=== PATIENT | male | born 1990 | race Hispanic/Latino ===

== ENCOUNTER 2017-08-28 11:39 | Emergency (ER) | payer BC, OTHER ==
[2017-08-28] MEDS ORDERED: ACETAMINOPHEN EXTRA STRENGTH 500 MG TABLET ONE (11:52)
[2017-08-28] MEDS ORDERED: LACTATED RINGERS 1000ML 2,000 ML IV ONE (12:16)
[2017-08-28 12:29] LABS: RAPID GROUP A STREP NEGATIVE (NEGATIVE)
[2017-08-28] MEDS ORDERED: MAG HYDROX/AL HYDROX/SIMETH ES 30 ML SUSP UDCUP ONE (12:32)
[2017-08-28] MEDS ORDERED: LIDOCAINE HCL 2% VISCOUS 15 ML UDCUP ONE (12:32)
[2017-08-28] MEDS ORDERED: METOCLOPRAMIDE 10 MG/2 ML VIAL ONE (12:32)
[2017-08-28] MEDS ORDERED: KETOROLAC TROMETHAMINE 30MG/ML ONE (12:33)
[2017-08-28] MEDS ORDERED: DEXAMETHASONE 4 MG TAB ONE (12:33)
[2017-08-28 12:35] LABS: HEMATOCRIT 40.6 % (42-54); MEAN CORPUSCULAR HEMOGLOBIN 27.5 pg (27.0-33.0); MEAN CORPUSCULAR HGB CONC 34.8 g/dL (32.0-36.0); MEAN CORPUSCULAR VOLUME 79.1 fL (79-99); PLATELET COUNT (AUTO) 217 K/uL (130-400); RED BLOOD CELL COUNT(AUTO) 5.13 MIL/uL (4.50-6.20); RED CELL DISTRIBUTION WIDTH 13.9 % (11.0-15.5)
[2017-08-28 12:36] LABS: BASOPHILS % (AUTO) 0.4 % (0.0-5.0); EOSINOPHILS % (AUTO) 0.1 % (0.0-8.0); LYMPHOCYTES % (AUTO) 10.1 % (21.0-51.0); MONOCYTES % (AUTO) 10.4 % (3.0-13.0)
[2017-08-28 12:46] LABS: CREATININE 0.9 mg/dL (0.5-1.5)
[2017-08-28 12:58] LABS: CRP QUANTITATIVE 141.9 mg/L (0.00-9.0)
[2017-08-28] MEDS ORDERED: CEFTRIAXONE SODIUM 1 GM ONE (13:28)
[2017-08-28] MEDS ORDERED: MORPHINE SULFATE 4 MG/1ML SYG ONE (15:03)
[2017-08-28 15:53] LABS: APPEARANCE,CSF CLEAR (CLEAR); CSF TOTAL VOLUME 5.5 mL; CSF TUBE NUMBER 2
[2017-08-28 15:54] LABS: APPEARANCE2,CSF CLEAR (CLEAR); COLOR,CSF COLORLESS (COLORLESS); COLOR2,CSF COLORLESS (COLORLESS); CSF 2ND TUBE NUMBER 3
[2017-08-28 16:03] LABS: GLUCOSE, CSF 64 mg/dL (40-70); TOTAL PROTEIN, CSF 34 mg/dL (15-45)
[2017-08-28 16:13] LABS: RED BLOOD CELL1,CSF 0 CMM (0-0); WHITE BLOOD CELL1,CSF 3 CMM (0-5)
[2017-08-28 16:14] LABS: WHITE BLOOD CELL2,CSF 1.6 CMM (0-5)
== END 2017-08-28 16:43 | disposition home or self-care (01) ==
LOC: EDH 11:39
DX: J02.9 Acute pharyngitis, unspecified (principal); R51 Headache
CPT/HCPCS: 36415; 62270; 80048; 82945; 83605; 84157; 85025; 86140; 87040; 87804 ×2; 87880; 89051 ×2; 96374; 96375; 99291; J0696; J1885; J2270; J2765; J7120; J8540

== ENCOUNTER 2017-12-31 23:01 | Emergency (ER) | payer BC ==
[2017-12-31] MEDS ORDERED: FAMOTIDINE 20MG TAB 20 MG TAB ONE (23:52)
[2017-12-31] MEDS ORDERED: DEXAMETHASONE SOD PHOSPHATE 10MG/ML 1ML VIAL ONE (23:52)
[2017-12-31] MEDS ORDERED: DiphenhydrAMINE HCL 50 MG/ML VIAL ONE (23:52)
== END 2018-01-01 00:45 | disposition home or self-care (01) ==
LOC: EDH 23:01
DX: T78.49XA Other allergy, initial encounter (principal); Z90.49 Acquired absence of other specified parts of digestive tract; X58.XXXA Exposure to other specified factors, initial encounter
CPT/HCPCS: 96372 ×2; 99284; J1100; J1200

== ENCOUNTER 2019-04-26 09:51 | Emergency (ER) | payer BC ==
[2019-04-26] MEDS ORDERED: ACETAMINOPHEN EXTRA STRENGTH 500 MG TABLET ONE (10:01)
[2019-04-26] MEDS ORDERED: ONDANSETRON ODT 4 MG TAB ONE (10:02)
== END 2019-04-26 10:33 | disposition home or self-care (01) ==
LOC: EDH 09:51
DX: J11.1 Influenza due to unidentified influenza virus with other respiratory manifestations (principal); Z90.49 Acquired absence of other specified parts of digestive tract

== ENCOUNTER 2020-09-14 22:48 | Emergency (ER) | payer BC ==
[~2020-09-14] VITALS: Ht 162.6 cm; Wt 5.4 kg
[2020-09-14 22:53] VITALS: BP 146/76
[2020-09-14 23:41] LABS: BASOPHILS % (AUTO) 0.5 % (0.0-5.0); EOSINOPHILS % (AUTO) 2.6 % (0.0-8.0); HEMATOCRIT 41.8 % (42-54); LYMPHOCYTES % (AUTO) 12.7 % (21.0-51.0); MEAN CORPUSCULAR HEMOGLOBIN 27.3 pg (27.0-33.0); MEAN CORPUSCULAR HGB CONC 34.2 g/dL (32.0-36.0); MEAN CORPUSCULAR VOLUME 79.9 fL (79-99); NEUTROPHILS % (AUTO) 72.2 % (40.0-77.0); PLATELET COUNT (AUTO) 267 K/uL (130-400); RED BLOOD CELL COUNT(AUTO) 5.23 MIL/uL (4.50-6.20); RED CELL DISTRIBUTION WIDTH 13.6 % (11.0-15.5)
[2020-09-14 23:44] LABS: CREATININE 0.8 mg/dL (0.5-1.5)
[2020-09-14 23:48] LABS: ALBUMIN 3.9 g/dL (3.5-5.0); BILIRUBIN,TOTAL 0.3 mg/dL (0.2-1.0); TOTAL PROTEIN, SERUM 7.9 g/dL (6.0-8.3)
[2020-09-15] MEDS ORDERED: AZIT500T PO (00:07)
[2020-09-15] MEDS ORDERED: METH4TAB3 PO (00:07)
[2020-09-15] MEDS ORDERED: PREDNISONE 20 MG TABLET ONE (00:09)
[2020-09-15] MEDS ORDERED: AZITHROMYCIN 250 MG TABLET PO ONE ×2 (00:10→00:15)
[2020-09-15] MEDS ORDERED: PREDNISONE 20 MG TABLET PO ONE (00:15)
[2020-09-15 00:17] VITALS: BP 140/82
== END 2020-09-15 00:21 | disposition home or self-care (01) ==
LOC: EDH 22:48
DX: J40 Bronchitis, not specified as acute or chronic (principal); Z86.16 Personal history of COVID-19
CPT/HCPCS: 36415; 71045; 80053; 85025

== ENCOUNTER 2022-12-17 20:41 | Emergency (ER) | payer BC, MEDICAID ==
[~2022-12-17] VITALS: Ht 162.6 cm; Wt 84.8 kg
[~2022-12-17 20:41] MED LIST: AZIT500T PO; METH4TAB3 PO
[2022-12-17 22:28] VITALS: BP 141/81; PULSE 85; RESP 16
[2022-12-17] MEDS ORDERED: METR-172 PO (23:17)
[2022-12-17] MEDS ORDERED: LIDOCAINE HCL 1% 20 ML VIAL ONE (23:25)
[2022-12-17] MEDS ORDERED: CEFTRIAXONE 1G VIAL ONE (23:25)
[2022-12-17] MEDS ORDERED: AZITHROMYCIN 250 MG TABLET PO ONE ×2 (23:26→23:45)
[2022-12-17] MEDS ORDERED: CEFTRIAXONE 1G VIAL IM ONE (23:45)
== END 2022-12-18 00:10 | disposition home or self-care (01) ==
LOC: EDH 21:48
DX: A64 Unspecified sexually transmitted disease (principal)
CPT/HCPCS: 99283; 87797; 87486; 96372; J0696

== ENCOUNTER 2023-07-14 12:36 | Emergency (ER) | payer MEDICAID, OTHER ==
[~2023-07-14] VITALS: Ht 162.6 cm; Wt 79.8 kg
[~2023-07-14 12:36] MED LIST changes: +METR-172 PO
[2023-07-14] MEDS ORDERED: SOLU-MEDROL 125MG VIAL IM ONE (13:00)
[2023-07-14 13:27] LABS: RAPID GROUP A STREP negative (NEGATIVE)
[2023-07-14 13:32] LABS: SARS-CoV-2, RNA, NAAT NEGATIVE SARS CoV-2 (NEGATIVE)
[2023-07-14 13:49] LABS: INFLUENZA TYPE A Negative For Type A (NEGATIVE); INFLUENZA TYPE B Negative For Type B (NEGATIVE)
[2023-07-14] MEDS ORDERED: BENZ-39 PO (14:35)
[2023-07-14 15:10] VITALS: BP 133/78; PULSE 78; RESP 18; O2SAT 98
== END 2023-07-14 15:22 | disposition home or self-care (01) ==
LOC: EDH 12:36
DX: J06.9 Acute upper respiratory infection, unspecified (principal); R05.9 Cough, unspecified; Z88.8 Allergy status to other drugs, medicaments and biological substances; Z20.822 Contact with and (suspected) exposure to COVID-19
CPT/HCPCS: 71045; 87635; 87804; 87880

== ENCOUNTER 2024-05-18 16:43 | Emergency (ER) | payer BC ==
[~2024-05-18] VITALS: Ht 160 cm; Wt 83.9 kg
[~2024-05-18 16:43] MED LIST changes: +BENZ-39 PO
[2024-05-18 17:25] LABS: RAPID GROUP A STREP positive (NEGATIVE)
[2024-05-18 17:28] LABS: SARS-CoV-2, RNA, NAAT NEGATIVE SARS CoV-2 (NEGATIVE)
[2024-05-18 17:29] VITALS: BP 124/84; PULSE 88; RESP 20; TEMP 102.4; O2SAT 100
[2024-05-18 17:32] LABS: INFLUENZA TYPE A Negative For Type A (NEGATIVE); INFLUENZA TYPE B Negative For Type B (NEGATIVE)
[2024-05-18 17:36] VITALS: TEMP 102.4
[2024-05-18] MEDS: ketOROlac 60 MG VIAL (30MG/ML) IM ONE (17:36)
[2024-05-18] MEDS: acetaMINOPHEN 500 MG TABLET PO ONE (17:36)
[2024-05-18] MEDS: cefTRIAXone 1G VIAL IM ONE (17:40)
[2024-05-18] MEDS ORDERED: PENI500T2 PO (18:07)
--- NOTE | 2024-05-18 18:08 | ERN ---
ED Note History of Present Illness Stated Complaint: SORE THROAT, COUGH, CONGESTION Chief Complaint: Fever Time Seen by MD: 17:06 Time Seen by Midlevel: 17:06 Dictation: The patient is a 33-year-old male with a history of asthma who presents to the emergency department with complaints of sore throat, fever, body aches, nonproductive cough onset Saturday. Patient denies any nausea, vomiting, diarrhea Allergies: Coded Allergies: prednisone (Unverified Allergy, Intermediate, 07/14/23) HIVES Home Meds Active Scripts Benzonatate (Tessalon Perles) 100 Mg Cap, 100 MG PO TIDP for cough, #60 CAP 2 capsules by mouth every 8 hours as needed for cough Prov:RASHEEDA LINDQUIST HELPER ELECTRICAL 07/14/23 Metronidazole (Metronidazole) 500 Mg Tablet, 500 MG PO BID for 7 Days, #14 TAB 0 Refills Prov:WOODROW YANCEY HELPER ELECTRICAL 12/17/22 Methylprednisolone (Medrol) 4 Mg Tab.ds.pk, 4 MG PO AD, #1 PACK Prov:OMID LIMA MD 09/15/20 Azithromycin (Zithromax) 500 Mg Tablet, 500 MG PO DAILY, #7 TAB Prov:OMID LIMA MD 09/15/20 Past Medical History Past Medical History: Asthma, Other Additional Past Medical Hx: HX OF LUNG ISSUES Surgical History: Other Surgical History Other: LAVAGE Family History: Negative Social History: Negative RN Note Reviewed/Agreed w/PFSH: Yes Review of System Dictation Constitutional: Negative for,chills, and weight loss positive for fever Eyes: Negative for injury, pain,redness, and discharge ENT: Negative for injury positive for sore throat Cardiovascular: Negative for chest pain, palpitations, and edema Respiratory: Negative for shortness of breath, and wheezing, positive for cough Abdomen/GI: Negative for abdominal pain, nausea, vomiting, diarrhea, and constipation Back: Negative for injury and pain : Negative for injury, bleeding and discharge MS/Extremity: Negative for injury and deformity Skin: Negative for rash, and discoloration Neuro: Negative for headache, weakness, numbness, tingling, and seizure Psych: Negative for suicide ideation, homicidal ideation, and hallucinations Initial Vital Sign VS Vital Signs Date Time Temp Pulse Resp B/P (MAP) Pulse Ox O2 Delivery O2 Flow Rate FiO2 05/18/24 16:44 101.3 116 20 118/76 99 Room Air 0 05/18/24 17:29 21 Physical Exam Dictation Vital Signs reviewed General Appearance: Alert, oriented x 3, no acute distress, well developed, nourished. Head and Face: non-traumatic. Eyes: PERRL, pink conjunctivas, eyelid no trauma, anterior chamber with arcus senilis. Ears: Pinnas intact and no signs of trauma or erythema ear canals clear and no discharge TM no erythema Nose: No discharge, no bleeding. Oropharynx: Mouth normal, tongue pink. pharynx clear,+ erythema, tonsils no exudates, tonsils 3+, no abscesses noted, mucous membrane moist Neck: Supple, non-tender, no thyromegaly, no masses, no JVD, no bruits Breast:Deferred Chest:No tenderness, no crepitus, no paradoxical movement, no retractions Lungs:Clear, well-ventilated, symmetric, no rales, no wheezing, no rhonchi, no stridor, good breath sounds bilaterally Heart: Regular rate, regular rhythm, no murmur, no gallops Vascular: no peripheral edema, Abdomen: Soft, positive bowel sounds, nondistended, no guarding, nontender, no rebound, no masses no hepatomegaly, no splenomegaly, no Greene's sign, no hernias. Rectal: Deferred Genital: Deferred Neurological: Normal speech, motor function intact, sensory function intact Musculoskeletal: Neck nontender, full range of motion, back nontender, full range of motion, Extremities: nontender, full range of motion Skin: Color pink, dry, no turgor, no rash, no lacerations, no abrasions, no contusions. Lymphatic: Deferred Results (Laboratory/Radiology) Laboratory/Radiology Laboratory Tests Test 05/18/24 16:30 Influenza Type A Antigen Negative For Type A Influenza Type B Antigen Negative For Type B SARS-CoV-2, RNA, NAAT NEGATIVE SARS CoV-2 Group A Streptococcus Rapid positive (NEGATIVE) *A Labs Reviewed?: Yes ED Course ED Course Orders Procedure Category Date Status Time Covid Rna Naat LAB 05/18/24 Complete 16:47 Influenza Type A & B, LAB 05/18/24 Complete Rapid 16:47 Rapid (Group A Strep) LAB 05/18/24 Complete 16:47 Acetaminophen 500mg PHA 05/18/24 Complete Tab (Tylenol 500mg T 17:30 Ketorolac 60mg/2ml PHA 05/18/24 Complete (Toradol 60mg/2ml) 17:30 Ceftriaxone 1g Vial PHA 05/18/24 Complete (Rocephine 1g Inj) 18:00 Current Medications Medications (Trade) Dose Ordered Sig/Sg Route PRN Reason Start Time Stop Time Status Last Admin Dose Admin Acetaminophen (TYLenol 500MG TAB) 1,000 mg ONCE ONCE PO 05/18/24 17:30 05/18/24 17:31 DC 05/18/24 17:36 Ceftriaxone Sodium (ROCEphine 1G INJ) 1 gm ONCE ONCE IM 05/18/24 18:00 05/18/24 18:01 DC 05/18/24 17:40 Ketorolac Tromethamine (toRADol 60MG/ 2ML) 60 mg ONCE ONCE IM 05/18/24 17:30 05/18/24 17:31 DC 05/18/24 17:36 Vital Signs Date Time Temp Pulse Resp B/P (MAP) Pulse Ox O2 Delivery O2 Flow Rate FiO2 05/18/24 17:36 102.4 05/18/24 17:29 102.4 88 20 124/84 100 Room Air* 0 21 05/18/24 16:44 101.3 116 20 118/76 99 Room Air 0 Medical Decision Making MDM The patient is a 33-year-old male with a history of asthma who presents to the emergency department with complaints of sore throat, fever, body aches, nonproductive cough onset Saturday. Patient denies any nausea, vomiting, diarrhea Patient tested positive for strep. We will be treated with the antibiotics. Patient with clear lung sounds, in no acute distress. Nontoxic appearance. We will be discharged to follow up with PCP. Differential diagnosis: Upper respiratory infection, pharyngitis, strep throat Need for hospitalization: Patient does not meet criteria for hospitalization. There are no social concerns with this patient. DX & DISP Disposition: Discharge Departure Impression: Primary Impression: Strep throat Condition: Stable Scripts Penicillin V Potassium (Penicillin V Potassium) 500 Mg Tablet 1 TAB PO TID for 10 Days, #30 TAB 0 Refills Prov: NANCY DAVIS MANAGER ENVIRONMENTAL HEALTH AND SAFETY 05/18/24 Additional Instructions: Please take medications as prescribed. Take full course of antibiotics even if if symptoms improve. Take Tylenol or ibuprofen as needed for fevers and pain. If symptoms worsen please return to ER. FOLLOW-UP WITH PRIMARY CARE PROVIDER IN 1 TO 2 DAYS. TAKE MEDICATIONS DIRECTED HERE IN THE EMERGENCY ROOM. OKAY TO CONTINUE HOME MEDICATIONS UNLESS OTHERWISE DISCUSSED DURING YOUR VISIT IN THE EMERGENCY ROOM TODAY. RETURN TO YOUR NEAREST EMERGENCY ROOM IF SYMPTOMS WORSEN OR IF THERE IS NO IMPROVEMENT. CALL 911 IF YOU NEED IMMEDIATE ASSISTANCE. TAKE TYLENOL OR MOTRIN [id number] NEEDED AND IF NO CONTRAINDICATIONS ARE PRESENT. INCREASE ORAL HYDRATION. A WOUND CULTURE OR URINE CULTURE WAS ORDERED HERE IN THE EMERGENCY ROOM DEPARTMENT PLEASE FOLLOW-UP WITH PRIMARY CARE PROVIDER AND ADVISE THEM TO GET REPEAT PORTS FROM OUR FACILITY. IF YOU HAD ANY MARIELLE WRAP/SPLINTS THAT WERE APPLIED HERE, PLEASE DO NOT REMOVE THEM UNTIL YOU SEE YOUR PRIMARY CARE OR SPECIALTY. Referrals: ISMAEL JESUS MD (PCP) Time of Disposition: 18:05 I have reviewed the case, and I agree with, Diagnosis and Plan NANCY DAVIS [facility] May 18, 2024 18:08
== END 2024-05-18 18:11 | disposition home or self-care (01) ==
LOC: EDH 16:43
DX: J02.0 Streptococcal pharyngitis (principal); J45.909 Unspecified asthma, uncomplicated; Z88.8 Allergy status to other drugs, medicaments and biological substances; Z20.822 Contact with and (suspected) exposure to COVID-19
CPT/HCPCS: 99284; 87635; 87880; 87804 ×2; 96372 ×2; J1885; J0696

== ENCOUNTER 2024-10-11 14:42 | Emergency (ER) | payer BC ==
[~2024-10-11] VITALS: Ht 160 cm; Wt 81.6 kg
[~2024-10-11 14:42] MED LIST changes: +PENI500T2 PO
[2024-10-11 15:39] LABS: INFLUENZA TYPE A Negative For Type A (NEGATIVE); INFLUENZA TYPE B Negative For Type B (NEGATIVE); RAPID GROUP A STREP negative (NEGATIVE)
[2024-10-11 15:40] LABS: COVID19 (SARS ANTIGEN RAPID) PRESUMPTIVE NEGATIVE (NEGATIVE)
[2024-10-11 16:53] VITALS: BP 125/76; PULSE 73; RESP 17; TEMP 99.1; O2SAT 98
[2024-10-11] MEDS ORDERED: AZIT250T9 PO (16:53)
--- NOTE | 2024-10-11 16:53 | ERN ---
ED Note History of Present Illness Stated Complaint: SORE THROAT Chief Complaint: Sore Throat Time Seen by MD: 14:48 Dictation: 34-year-old male presenting to the emergency department with cough cold congestion runny nose over the past few days no chest pain or shortness of breath. Allergies: Coded Allergies: prednisone (Unverified Allergy, Intermediate, 07/14/23) HIVES Home Meds Active Scripts Penicillin V Potassium (Penicillin V Potassium) 500 Mg Tablet, 1 TAB PO TID for 10 Days, #30 TAB 0 Refills Prov:NANCY DAVIS PRESIDENT [employer] 05/18/24 Benzonatate (Tessalon Perles) 100 Mg Cap, 100 MG PO TIDP for cough, #60 CAP 2 capsules by mouth every 8 hours as needed for cough Prov:RASHEEDA LINDQUIST SUPERVISOR [employer]LECTRONIC [employer] 07/14/23 Metronidazole (Metronidazole) 500 Mg Tablet, 500 MG PO BID for 7 Days, #14 TAB 0 Refills Prov:WOODROW YANCEY SUPERVISOR [employer] 12/17/22 Methylprednisolone (Medrol) 4 Mg Tab.ds.pk, 4 MG PO AD, #1 PACK Prov:OMID LIMA MD 09/15/20 Azithromycin (Zithromax) 500 Mg Tablet, 500 MG PO DAILY, #7 TAB Prov:OMID LIMA MD 09/15/20 Past Medical History Past Medical History: Asthma, Other Additional Past Medical Hx: HX OF LUNG ISSUES Surgical History: Appendectomy, Other Surgical History Other: LAVAGE Family History: Negative Social History: Negative Review of System Dictation Constitutional: per HPi Eyes: Negative for injury, pain,redness, and discharge ENT: per HPi Cardiovascular: Negative for chest pain, palpitations, and edema Respiratory: Negative for shortness of breath, cough, and wheezing, Abdomen/GI: Negative for abdominal pain, nausea, vomiting, diarrhea, and constipation Back: Negative for injury and pain : Negative for injury, bleeding and discharge MS/Extremity: Negative for injury and deformity Skin: Negative for rash, and discoloration Neuro: Negative for headache, weakness, numbness, tingling, and seizure Psych: Negative for suicide ideation, homicidal ideation, and hallucinations Initial Vital Sign VS Vital Signs Date Time Temp Pulse Resp B/P (MAP) Pulse Ox O2 Delivery O2 Flow Rate FiO2 10/11/24 14:43 98.1 73 16 110/51 98 Room Air 0 Physical Exam Dictation General: awake, alert, NAD Head/Face: Normocephalic, atraumatic Eyes: PERRL, EOMI, vision at baseline ENT: oral cavity clear, TMs clear, no signs of infection Neck: Trachea midline, supple, no nuchal rigidity Cardiovascular: RRR, normal S1/S2, No MRGs, no JVD Respiratory: CTAB, no respiratory distress, No rales or wheezes Abdomen: Soft, non-tender, non-distended, normal bowel sounds, no guarding or rebound. Skin: Warm, dry, normal turgor, no rash MS/Extremity: Pulses equal, no cyanosis, neurovascular intact, FROM Neuro: COAx4, GCS 15, strength 5/5, CN 2-12 intact, normal cerebellar exam, normal gait, Psych: Normal behavior, mood, and affect normal Results (Laboratory/Radiology) Laboratory/Radiology Laboratory Tests Test 10/11/24 14:47 Influenza Type A Antigen Negative For Type A Influenza Type B Antigen Negative For Type B SARS-CoV-2 Antigen (Rapid) PRESUMPTIVE NEGATIVE Group A Streptococcus Rapid negative (NEGATIVE) Labs Reviewed?: Yes ED Course ED Course Orders Procedure Category Date Status Time Covid19 (Sars Antigen LAB 10/11/24 Complete Rapid) 14:48 Rapid (Group A Strep) LAB 10/11/24 Complete 14:48 Influenza Type A & B, LAB 10/11/24 Complete Rapid 14:48 Vital Signs Date Time Temp Pulse Resp B/P (MAP) Pulse Ox O2 Delivery O2 Flow Rate FiO2 10/11/24 14:43 98.1 73 16 110/51 98 Room Air 0 Medical Decision Making MDM MDM: Differential diagnosis: Rationale: Tests considered and ordered secondary to shared decision making include: Previous outside records reviewed: Old ER visits. Risk of complication and/or morbidity or mortality of patient management: None Medications-Per medication reconciliation Need for hospitalization: Patient does not meet criteria for hospitalization. Need for emergency major/minor surgery: No There are no social concerns with this patient. Prescription drug management Prescriptions will include symptomatic care Patient's prior external medical records from other ER visits were reviewed by me as indicated. Prior testing and results from previous visits were reviewed. Prior tests were taken into account with medical decision making and resource utilization, independent historian/historians were used to obtain complete medical history. I independently interpreted the test that were performed, results were reviewed by me and considered findings on radiology if ordered. Medical management and examination interpretation discussions were had by me with other qualified healthcare professionals as indicated for the patient's care. 34-year-old male with URI symptoms vital signs stable swabs were negative no respiratory distress prescriptions given stable for discharge. DX & DISP Disposition: Discharge Departure Impression: Primary Impression: Bronchitis Condition: Stable Scripts Azithromycin (Azithromycin) 250 Mg Tablet 1 TAB PO AD for 5 Days, #6 TAB 0 Refills 2 the first day followed by 1 for days 2-5 Prov: DAREN HINES MD 10/11/24 Referrals: LUNGBLAS MD (PCP) DAREN HINES MD Oct 11, 2024 16:53
== END 2024-10-11 16:57 | disposition home or self-care (01) ==
LOC: EDH 14:42
DX: J40 Bronchitis, not specified as acute or chronic (principal); Z88.8 Allergy status to other drugs, medicaments and biological substances; Z20.822 Contact with and (suspected) exposure to COVID-19
CPT/HCPCS: 87426; 87804; 87880; 99283

== ENCOUNTER 2024-10-24 20:46 | Emergency (ER) | payer BC ==
[~2024-10-24] VITALS: Ht 160 cm; Wt 85.3 kg
[~2024-10-24 20:46] MED LIST changes: +AZIT250T9 PO
--- NOTE | 2024-10-24 20:48 | NUR ---
PT IDENTIFIES FEMALE
--- NOTE | 2024-10-24 20:48 | NUR ---
UA CUP PROVIDED
--- NOTE | 2024-10-24 21:04 | ERN ---
ED Note History of Present Illness Stated Complaint: FEVER, COUGH, SORE THROAT, RUNNY NOSE Chief Complaint: Flu Symptoms Time Seen by MD: 20:48 Time Seen by Midlevel: 20:48 Dictation: The patient is a 34-year-old male with a history of bronchitis who presents to the emergency department with complaints of frontal headache, sore throat, runny nose, fevers, productive cough onset two days ago. Allergies: Coded Allergies: prednisone (Unverified Allergy, Intermediate, 07/14/23) HIVES Home Meds Active Scripts Azithromycin (Azithromycin) 250 Mg Tablet, 1 TAB PO AD for 5 Days, #6 TAB 0 Refills 2 the first day followed by 1 for days 2-5 Prov:DAREN HINES MD 10/11/24 Penicillin V Potassium (Penicillin V Potassium) 500 Mg Tablet, 1 TAB PO TID for 10 Days, #30 TAB 0 Refills Prov:NANCY DAVIS TOUCH UP WORKER 05/18/24 Benzonatate (Tessalon Perles) 100 Mg Cap, 100 MG PO TIDP for cough, #60 CAP 2 capsules by mouth every 8 hours as needed for cough Prov:RASHEEDA LINDQUIST CRYPTANALYST 07/14/23 Metronidazole (Metronidazole) 500 Mg Tablet, 500 MG PO BID for 7 Days, #14 TAB 0 Refills Prov:WOODROW YANCEY CRYPTANALYST 12/17/22 Methylprednisolone (Medrol) 4 Mg Tab.ds.pk, 4 MG PO AD, #1 PACK Prov:OMID LIMA MD 09/15/20 Azithromycin (Zithromax) 500 Mg Tablet, 500 MG PO DAILY, #7 TAB Prov:OMID LIMA MD 09/15/20 Past Medical History Past Medical History: Asthma, Other Additional Past Medical Hx: HX OF LUNG ISSUES DUE TO COVID Surgical History: Appendectomy Surgical History Other: LAVAGE Family History: Negative Social History: Negative RN Note Reviewed/Agreed w/PFSH: Yes Review of System Dictation Constitutional: Negative for fever,chills, and weight loss Eyes: Negative for injury, pain,redness, and discharge ENT: Negative for injury,pain or swelling positive for sore throat, runny nose Cardiovascular: Negative for chest pain, palpitations, and edema Respiratory: Negative for shortness of breath, , and wheezing, positive for cough Abdomen/GI: Negative for abdominal pain, nausea, vomiting, diarrhea, and constipation Back: Negative for injury and pain : Negative for injury, bleeding and discharge MS/Extremity: Negative for injury and deformity Skin: Negative for rash, and discoloration Neuro: Negative for headache, weakness, numbness, tingling, and seizure Psych: Negative for suicide ideation, homicidal ideation, and hallucinations Initial Vital Sign VS Vital Signs Date Time Temp Pulse Resp B/P (MAP) Pulse Ox O2 Delivery O2 Flow Rate FiO2 10/24/24 20:48 97.5 104 20 131/73 99 Room Air 10/24/24 21:28 0 21 Physical Exam Dictation Vital Signs reviewed General Appearance: Alert, oriented x 3, no acute distress, well developed, nourished. Head and Face: non-traumatic. Eyes: PERRL, pink conjunctivas, eyelid no trauma, anterior chamber with arcus senilis. Ears: Pinnas intact and no signs of trauma or erythema ear canals clear and no discharge TM no erythema Nose: No discharge, no bleeding. Oropharynx: Mouth normal, tongue pink. pharynx clear,no erythema, tonsils no exudates, no abscesses noted, mucous membrane moist Neck: Supple, non-tender, no thyromegaly, no masses, no JVD, no bruits Breast:Deferred Chest:No tenderness, no crepitus, no paradoxical movement, no retractions Lungs:Clear, well-ventilated, symmetric, no rales, no wheezing, no rhonchi, no stridor, good breath sounds bilaterally Heart: Regular rate, regular rhythm, no murmur, no gallops Vascular: no peripheral edema, Abdomen: Soft, positive bowel sounds, nondistended, no guarding, nontender, no rebound, no masses no hepatomegaly, no splenomegaly, no Greene's sign, no hernias. Rectal: Deferred Genital: Deferred Neurological: Normal speech, motor function intact, sensory function intact Musculoskeletal: Neck nontender, full range of motion, back nontender, full range of motion, Extremities: nontender, full range of motion Skin: Color pink, dry, no turgor, no rash, no lacerations, no abrasions, no contusions. Lymphatic: Deferred Results (Laboratory/Radiology) Laboratory/Radiology Laboratory Tests Test 10/24/24 21:05 Urine Color LIGHT-YELLOW (YELLOW) Urine Appearance CLEAR (CLEAR) Urine pH 5.5 (5.0-8.0) Urine Specific [place] 1.018 (1.001-1.031) Urine Protein NEGATIVE mg/dL (NEGATIVE) Urine Glucose (UA) NEGATIVE mg/dL (NEGATIVE) Urine Ketones NEGATIVE mg/dL (NEGATIVE) Urine Occult Blood NEGATIVE (NEGATIVE) Urine Nitrate NEGATIVE (NEGATIVE) Urine Bilirubin NEGATIVE mg/dL (NEGATIVE) Urine Urobilinogen 0.2 mg/dL (0.2-1.0) Urine Leukocyte Esterase NEGATIVE Ja/uL Influenza Type A Antigen Negative For Type A Influenza Type B Antigen Negative For Type B SARS-CoV-2 Antigen (Rapid) POSITIVE FOR SARS AG Group A Streptococcus Rapid negative (NEGATIVE) Labs Reviewed?: Yes ED Course ED Course Orders Procedure Category Date Status Time Covid19 (Sars Antigen LAB 10/24/24 Complete Rapid) 20:59 Influenza Type A & B, LAB 10/24/24 Complete Rapid 20:59 Rapid (Group A Strep) LAB 10/24/24 Complete 20:59 Guaifenesin-Codeine PHA 10/24/24 Complete Syrup 5ml (Robitussi 21:00 Acetaminophen 500mg PHA 10/24/24 Complete Tab (Tylenol 500mg T 21:00 Urinalysis Profile LAB 10/24/24 Complete 21:09 Current Medications Medications (Trade) Dose Ordered Sig/Sg Route PRN Reason Start Time Stop Time Status Last Admin Dose Admin Acetaminophen (TYLenol 500MG TAB) 1,000 mg ONCE ONCE PO 10/24/24 21:00 10/24/24 21:01 DC 10/24/24 21:19 Guaifenesin/ Codeine Phosphate (RobiTUSSin AC 5 ML SYRUP) 10 ml ONCE ONCE PO 10/24/24 21:00 10/24/24 21:01 DC 10/24/24 21:19 Vital Signs Date Time Temp Pulse Resp B/P (MAP) Pulse Ox O2 Delivery O2 Flow Rate FiO2 10/24/24 21:28 98.1 101 20 130/75 100 Room Air* 0 21 10/24/24 20:48 97.5 104 20 131/73 99 Room Air Medical Decision Making MDM The patient is a 34-year-old male with a history of bronchitis who presents to the emergency department with complaints of frontal headache, sore throat, runny nose, fevers, productive cough onset two days ago. Serology positive for COVID-19. On physical exam patient is in no acute distress, clear lung sounds. Stable vital signs. Patient will be discharged to follow up with PCP. Differential diagnosis: Upper respiratory infection, strep throat, pharyngitis Need for hospitalization: Patient does not meet criteria for hospitalization. There are no social concerns with this patient. DX & DISP Disposition: Discharge Departure Impression: Primary Impression: COVID-19 virus infection Condition: Stable Additional Instructions: You tested positive for COVID-19 infection which is a virus periods there is no need for antibiotics at this time. You can take Tylenol or ibuprofen as needed for fevers. Please follow up with the primary doctor. If anything worsens please return to ER. FOLLOW-UP WITH PRIMARY CARE PROVIDER IN 1 TO 2 DAYS. TAKE MEDICATIONS DIRECTED HERE IN THE EMERGENCY ROOM. OKAY TO CONTINUE HOME MEDICATIONS UNLESS OTHERWISE DISCUSSED DURING YOUR VISIT IN THE EMERGENCY ROOM TODAY. RETURN TO YOUR NEAREST EMERGENCY ROOM IF SYMPTOMS WORSEN OR IF THERE IS NO IMPROVEMENT. CALL 911 IF YOU NEED IMMEDIATE ASSISTANCE. TAKE TYLENOL [id number] NEEDED AND IF NO CONTRAINDICATIONS ARE PRESENT. INCREASE ORAL HYDRATION. A WOUND CULTURE OR URINE CULTURE WAS ORDERED HERE IN THE EMERGENCY ROOM DEPARTMENT PLEASE FOLLOW-UP WITH PRIMARY CARE PROVIDER AND ADVISE THEM TO GET REPEAT PORTS FROM OUR FACILITY. IF YOU HAD ANY MARIELLE WRAP/SPLINTS THAT WERE APPLIED HERE, PL EASE DO NOT REMOVE THEM UNTIL YOU SEE YOUR PRIMARY CARE OR SPECIALTY. Referrals: BLAS MELCHOR MD (PCP) Time of Disposition: 21:42 I have reviewed the case, and I agree with, Diagnosis and Plan NANCY DAVIS [facility] Oct 24, 2024 21:03
[2024-10-24 21:20] LABS: APPEARANCE,URINE CLEAR (CLEAR); GLUCOSE, URINE (UA) NEGATIVE (NEGATIVE); LEUKOCYTE ESTERASE ,URINE NEGATIVE Leu/uL (NEGATIVE); NITRATE,URINE NEGATIVE (NEGATIVE); OCCULT BLOOD,URINE NEGATIVE (NEGATIVE)
[2024-10-24 21:22] LABS: ADD UA MICROSCOPIC NO
[2024-10-24 21:23] LABS: RAPID GROUP A STREP negative (NEGATIVE)
[2024-10-24 21:37] LABS: INFLUENZA TYPE A Negative For Type A (NEGATIVE); INFLUENZA TYPE B Negative For Type B (NEGATIVE)
[2024-10-24 21:39] LABS: COVID19 (SARS ANTIGEN RAPID) POSITIVE FOR SARS AG (NEGATIVE)
[2024-10-24 21:52] VITALS: BP 128/71; PULSE 95; RESP 18; TEMP 98.1; O2SAT 100
== END 2024-10-24 22:00 | disposition home or self-care (01) ==
LOC: EDH 20:46
DX: U07.1 COVID-19 (principal); J45.909 Unspecified asthma, uncomplicated; Z88.8 Allergy status to other drugs, medicaments and biological substances; Z90.49 Acquired absence of other specified parts of digestive tract
CPT/HCPCS: 81003; 87426; 87804; 87880; 99283

== ENCOUNTER 2025-03-07 17:44 | Emergency (ER) | payer BC ==
[~2025-03-07] VITALS: Ht 162.6 cm; Wt 87.3 kg
[2025-03-07 17:46] VITALS: BP 129/71; PULSE 88; RESP 19; TEMP 97.6
[2025-03-07 18:17] LABS: RAPID GROUP A STREP negative (NEGATIVE); SARS-CoV-2, RNA, NAAT NEGATIVE SARS CoV-2 (NEGATIVE)
[2025-03-07 18:28] LABS: INFLUENZA TYPE A Negative For Type A (NEGATIVE); INFLUENZA TYPE B Negative For Type B (NEGATIVE)
--- NOTE | 2025-03-07 19:29 | HMCIMG ---
EXAM: CR Chest, 2 View. CLINICAL HISTORY: cough COMPARISON: None provided. FINDINGS: LUNGS: Slight basilar atelectasis. No lung consolidation PLEURAL SPACES: No evidence of pleural effusion or pneumothorax. MEDIASTINUM: The cardiomediastinal silhouette is within normal limits. BONES: No aggressive appearing osseous lesion seen. IMPRESSION: 1. Slight basilar atelectasis. 2. No lung consolidation /[place]
[2025-03-07] MEDS: guaiFENesin-DM 200/20MG 10ML PO ONE (19:52)
--- NOTE | 2025-03-07 20:17 | ERN ---
ED Note History of Present Illness Stated Complaint: FLU SYMPTOMS Chief Complaint: Flu Symptoms Time Seen by MD: 17:50 Time Seen by Midlevel: 17:50 Dictation: The patient is a 34-year-old male with no past medical history who presents to the emergency department with complaints of headache, nausea, sore throat, cough, congestion onset a week ago. Patient denies any fevers. Allergies: Coded Allergies: prednisone (Unverified Allergy, Intermediate, 07/14/23) HIVES Home Meds Active Scripts Azithromycin (Zithromax) 250 Mg Tablet, 250 MG PO AD for 5 Days, #6 TAB Take 2 250 mg tablets on day 1, then take 1 250mg tablets daily for 4 days Prov:NANCY DAVIS [facility] 03/07/25 Azithromycin (Azithromycin) 250 Mg Tablet, 1 TAB PO AD for 5 Days, #6 TAB 0 Refills 2 the first day followed by 1 for days 2-5 Prov:DAREN HINES MD 10/11/24 Penicillin V Potassium (Penicillin V Potassium) 500 Mg Tablet, 1 TAB PO TID for 10 Days, #30 TAB 0 Refills Prov:NANCY DAVIS [facility] 05/18/24 Benzonatate (Tessalon Perles) 100 Mg Cap, 100 MG PO TIDP for cough, #60 CAP 2 capsules by mouth every 8 hours as needed for cough Prov:RASHEEDA LINDQUIST [facility] 07/14/23 Metronidazole (Metronidazole) 500 Mg Tablet, 500 MG PO BID for 7 Days, #14 TAB 0 Refills Prov:WOODROW YANCEY [facility] 12/17/22 Methylprednisolone (Medrol) 4 Mg Tab.ds.pk, 4 MG PO AD, #1 PACK Prov:OMID LIMA MD 09/15/20 Azithromycin (Zithromax) 500 Mg Tablet, 500 MG PO DAILY, #7 TAB Prov:OMID LIMA MD 09/15/20 Past Medical History Past Medical History: Anxiety, Asthma, Depression Additional Past Medical Hx: CPTSD Surgical History: None Surgical History Other: LAVAGE Family History: Negative Social History: Negative RN Note Reviewed/Agreed w/PFSH: Yes Review of System Dictation Constitutional: Negative for fever,chills, and weight loss Eyes: Negative for injury, pain,redness, and discharge ENT: Negative for injury,pain or swelling positive for sore throat Cardiovascular: Negative for chest pain, palpitations, and edema Respiratory: Negative for shortness of breath, , and wheezing, positive for cough Abdomen/GI: Negative for abdominal pain, nausea, vomiting, diarrhea, and constipation Back: Negative for injury and pain : Negative for injury, bleeding and discharge MS/Extremity: Negative for injury and deformity Skin: Negative for rash, and discoloration Neuro: Negative for headache, weakness, numbness, tingling, and seizure Psych: Negative for suicide ideation, homicidal ideation, and hallucinations Initial Vital Sign VS Vital Signs Date Time Temp Pulse Resp B/P (MAP) Pulse Ox O2 Delivery O2 Flow Rate FiO2 03/07/25 17:46 97.5 88 19 129/71 97 Room Air 0 Physical Exam Dictation Vital Signs reviewed General Appearance: Alert, oriented x 3, no acute distress, well developed, nourished. Head and Face: non-traumatic. Eyes: PERRL, pink conjunctivas, eyelid no trauma, anterior chamber with arcus senilis. Ears: Pinnas intact and no signs of trauma or erythema ear canals clear and no discharge TM no erythema Nose: No discharge, no bleeding. Oropharynx: Mouth normal, tongue pink. pharynx clear,no erythema, tonsils no exudates, no abscesses noted, mucous membrane moist Neck: Supple, non-tender, no thyromegaly, no masses, no JVD, no bruits Breast:Deferred Chest:No tenderness, no crepitus, no paradoxical movement, no retractions Lungs:Clear, well-ventilated, symmetric, no rales, no wheezing, no rhonchi, no stridor, good breath sounds bilaterally Heart: Regular rate, regular rhythm, no murmur, no gallops Vascular: no peripheral edema, Abdomen: Soft, positive bowel sounds, nondistended, no guarding, nontender, no rebound, no masses no hepatomegaly, no splenomegaly, no Greene's sign, no hernias. Rectal: Deferred Genital: Deferred Neurological: Normal speech, motor function intact, sensory function intact Musculoskeletal: Neck nontender, full range of motion, back nontender, full range of motion, Extremities: nontender, full range of motion Skin: Color pink, dry, no turgor, no rash, no lacerations, no abrasions, no contusions. Lymphatic: Deferred Results (Laboratory/Radiology) Laboratory/Radiology Laboratory Tests Test 03/07/25 17:55 Influenza Type A Antigen Negative For Type A Influenza Type B Antigen Negative For Type B SARS-CoV-2, RNA, NAAT NEGATIVE SARS CoV-2 Group A Streptococcus Rapid negative (NEGATIVE) REASON: cough ORDERING PHYSICIAN: NANCY DAVIS PROCEDURE: CXR1VW - CHEST 1VW EXAM: CR Chest, 2 View. CLINICAL HISTORY: cough COMPARISON: None provided. FINDINGS: LUNGS: Slight basilar atelectasis. No lung consolidation PLEURAL SPACES: No evidence of pleural effusion or pneumothorax. MEDIASTINUM: The cardiomediastinal silhouette is within normal limits. BONES: No aggressive appearing osseous lesion seen. IMPRESSION: 1. Slight basilar atelectasis. 2. No lung consolidation /[facility] Labs Reviewed?: Yes ED Course ED Course Orders Procedure Category Date Status Time Covid Rna Naat LAB 03/07/25 Complete 17:52 Influenza Type A & B, LAB 03/07/25 Complete Rapid 17:52 Rapid (Group A Strep) LAB 03/07/25 Complete 17:52 Chest 1vw RAD 03/07/25 Resulted 18:05 Acetaminophen 500mg PHA 03/07/25 Complete Tab (Tylenol 500mg T 18:30 Ondansetron Odt 4mg PHA 03/07/25 Complete Tab (Zofran 4mg Odt) 18:30 Guaifenesin-Dm PHA 03/07/25 Complete 200/20mg 10ml 18:30 Current Medications Medications (Trade) Dose Ordered Sig/Sg Route PRN Reason Start Time Stop Time Status Last Admin Dose Admin Acetaminophen (TYLenol 500MG TAB) 1,000 mg ONCE ONCE PO 03/07/25 18:30 03/07/25 18:31 DC 03/07/25 19:52 Guaifenesin/ Dextromethorphan (RobiTUSSin DM 200/20MG 10ML) 10 ml ONCE ONCE PO 03/07/25 18:30 03/07/25 18:31 DC 03/07/25 19:52 Ondansetron HCl (zoFRAN 4MG ODT) 4 mg ONCE ONCE SL 03/07/25 18:30 03/07/25 18:31 DC 03/07/25 19:52 Vital Signs Date Time Temp Pulse Resp B/P (MAP) Pulse Ox O2 Delivery O2 Flow Rate FiO2 03/07/25 17:46 97.5 88 19 129/71 97 Room Air 0 Medical Decision Making MDM The patient is a 34-year-old male with no past medical history who presents to the emergency department with complaints of headache, nausea, sore throat, cough, congestion onset a week ago. Patient reports she was feeling better and then started again with symptoms yesterday. Patient denies any fevers. Serology was negative. Chest x-ray did not show any consolidation. On physical exam patient is in no acute distress, nontoxic appearance. Patient will be discharged to follow up with PCP. Differential diagnosis: Upper respiratory infection, pneumonia, strep throat Need for hospitalization: Patient does not meet criteria for hospitalization. There are no social concerns with this patient. DX & DISP Disposition: Discharge Departure Impression: Primary Impression: Bronchitis Condition: Stable Scripts Azithromycin (Zithromax) 250 Mg Tablet 250 MG PO AD for 5 Days, #6 TAB Take 2 250 mg tablets on day 1, then take 1 250mg tablets daily for 4 days Prov: NANCY DAVIS 03/07/25 Additional Instructions: Please follow up with your primary doctor in 1-2 days. If anything worsens please return to ER. FOLLOW-UP WITH PRIMARY CARE PROVIDER IN 1 TO 2 DAYS. TAKE MEDICATIONS DIRECTED HERE IN THE EMERGENCY ROOM. OKAY TO CONTINUE HOME MEDICATIONS UNLESS OTHERWISE DISCUSSED DURING YOUR VISIT IN THE EMERGENCY ROOM TODAY. RETURN TO YOUR NEAREST EMERGENCY ROOM IF SYMPTOMS WORSEN OR IF THERE IS NO IMPROVEMENT. CALL 911 IF YOU NEED IMMEDIATE ASSISTANCE. TAKE TYLENOL [id number] N EEDED AND IF NO CONTRAINDICATIONS ARE PRESENT. INCREASE ORAL HYDRATION. A WOUND CULTURE OR URINE CULTURE WAS ORDERED HERE IN THE EMERGENCY ROOM DEPARTMENT PLEASE FOLLOW-UP WITH PRIMARY CARE PROVIDER AND ADVISE THEM TO GET REPEAT PORTS FROM OUR FACILITY. IF YOU HAD ANY MARIELLE WRAP/SPLINTS THAT WERE APPLIED HERE, PLEASE DO NOT REMOVE THEM UNTIL YOU SEE YOUR PRIMARY CARE OR SPECIALTY. Referrals: BLAS MELCHOR MD (PCP) Time of Disposition: 20:23 I have reviewed the case, and I agree with, Diagnosis and Plan NANCY DAVIS Mar 07, 2025 20:17
[2025-03-07] MEDS ORDERED: AZIT250T PO (20:24)
== END 2025-03-07 20:46 | disposition home or self-care (01) ==
LOC: EDH 17:44
DX: J45.909 Unspecified asthma, uncomplicated (principal); F41.9 Anxiety disorder, unspecified; F32.A Depression, unspecified; Z88.8 Allergy status to other drugs, medicaments and biological substances; Z20.822 Contact with and (suspected) exposure to COVID-19
CPT/HCPCS: 71045; 87635; 87804; 87880; 99283